=== PATIENT | male | born 1970 | race Two or more races ===

== ENCOUNTER 2020-01-30 10:48 | Emergency (ER) | payer MEDICAID ==
[~2020-01-30] VITALS: Ht 160 cm; Wt 106.6 kg
[2020-01-30] MEDS ORDERED: HYDROCODONE/APAP 10/325MG 1 EA TABLET ONE (11:10)
--- NOTE | 2020-01-30 11:13 | NUR ---
patient came in to ther er c/o lower back pain since thursday, denies any trauma. on room air, breathing evenly and unlabored. connected to the monitor and pulse ox. kept comfortable, will continue to monitor accordingly.
--- NOTE | 2020-01-30 11:15 | NUR ---
wheeled patient via [facility] for ct scan
[2020-01-30] MEDS ORDERED: HYDROCODONE/APAP 10/325MG 1 EA TABLET PO ONE (11:30)
[2020-01-30 12:20] VITALS: BP 135/81
--- NOTE | 2020-01-30 12:20 | NUR ---
Patient discharged to home in stable condition. Written and verbal after care instructions given. Patient verbalizes understanding of instruction.
== END 2020-01-30 12:20 | disposition home or self-care (01) ==
LOC: ER 10:50
DX: M54.41 Lumbago with sciatica, right side (principal); E66.01 Morbid (severe) obesity due to excess calories; Z68.41 Body mass index [BMI] 40.0-44.9, adult
CPT/HCPCS: 72131-TC